=== PATIENT | female | born 1965 ===

== ENCOUNTER 2018-08-02 13:03 | Emergency (ER) | payer OTHER ==
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
[2018-08-02 14:54] VITALS: BP 115/78; PULSE 74; RESP 20; TEMP 98.6
--- NOTE | 2018-08-02 15:21 | RAD ---
Date of service: 08/02/2018 PROCEDURE: Cervical Spine Radiographs. HISTORY: Pain. COMPARISON: None available. TECHNIQUE: 3 views obtained. FINDINGS: BONES: Alignment maintained. No fracture. Dens Intact. DISC SPACES: Normal. SOFT TISSUES: Normal. No prevertebral soft tissue swelling. OTHER FINDINGS: None. IMPRESSION: Normal cervical spine radiographs
[2018-08-02 17:41] VITALS: O2SAT 96
== END 2018-08-02 14:54 | disposition home or self-care (01) ==
LOC: C.ER 13:03
DX: S13.4XXA Sprain of ligaments of cervical spine, initial encounter (principal); V49.40XA Driver injured in collision with unspecified motor vehicles in traffic accident, initial encounter; Y92.410 Unspecified street and highway as the place of occurrence of the external cause